=== PATIENT | male | born 1960 | race American Indian/Alaskan Native ===

== ENCOUNTER 2016-07-31 07:57 | Emergency (ER) | payer SELFPAY ==
--- NOTE | 2016-07-31 10:06 | Emergency Department Report ---
HPI - General Chief Complaint: Extremity Injury, Lower Time Seen by Provider: 07/31/16 09:50 - HPI HPI: Patient is a 55-year-old male who presents to ED complaining left foot pain and swelling 1 week. Patient states a week ago he noticed some swelling on his anterior left foot. Patient states 2 days ago he fell pain to his left pinky toe. Patient states moderate pain with applied pressure to the lateral aspect of the foot. Patient denies any trauma or fall, bites, insects staying to the foot. Patient denies taking any medication or allergic to any medication patient also denies fevers/chills/nausea/vomiting/chest pain/shortness of pain or any other problems ED Past Medical Hx - Past Medical History Previous Medical History?: No - Surgical History Past Surgical History?: No - Social History Smoking Status: Current Every Day Smoker Substance Use Type: Alcohol, Marijuana - Medications Home Medications: Home Medications Medication Instructions Recorded Confirmed Last Taken Type Clindamycin [Clindamycin CAP] 600 mg PO BID #12 capsule 07/31/16 Unknown Rx Ibuprofen [Motrin] 800 mg PO Q8HR PRN #30 tablet 07/31/16 Unknown Rx ED Review of Systems ROS: Stated complaint: LT FOOT PAIN Other details as noted in HPI Constitutional: denies: chills, fever Eyes: denies: eye pain, eye discharge, vision change ENT: denies: ear pain, throat pain Respiratory: denies: cough, shortness of breath, wheezing Cardiovascular: denies: chest pain, palpitations Endocrine: no symptoms reported Gastrointestinal: denies: abdominal pain, nausea, diarrhea Genitourinary: denies: urgency, dysuria Musculoskeletal: denies: back pain, joint swelling, arthralgia Skin: denies: rash, lesions Neurological: denies: headache, weakness, paresthesias Psychiatric: denies: anxiety, depression Hematological/Lymphatic: denies: easy bleeding, easy bruising Physical Exam - Physical Exam Vital Signs: Vital Signs 07/31/16 08:00 Temperature 98.3 F Pulse Rate 67 Respiratory 20 Rate Blood Pressure 123/78 O2 Sat by Pulse 95 Oximetry Physical Exam: GENERAL: Alert and oriented x3, no apparent distress, Normal Gait, atraumatic. HEAD: Head is normocephalic and a-traumatic. EYES: Extra ocular muscles are intact. Pupils are equal, round, and reactive to light and accommodation. MOUTH:Mouth is well hydrated and without lesions. Tonsils nonerythematous or swollen, Uvula midline, Tongue not elevated. Mucous membranes are moist. Posterior pharynx clear, no exudate or lesions. Patent airways. NECK: Supple. Non edematous, No carotid bruits. No lymphadenopathy or thyromegaly. LUNGS: Symetrical with respiration, No wheezing, no rales or crackles, CTAB. HEART: S1, S2 present, regular rate and rhythm without murmur, no rubs, no gallops. ABDOMEN: No organomegaly was noted,Positive bowel sounds, soft, and non- distended. . Nontender to palpation on all Quadrants, NO CVA tenderness. EXTREMITIES/MUSCULOSKELETAL: No cyanosis, clubbing, rash, lesions or edema. Full ROM bilaterally. UE/LE Pulses 2+ bilaterally. LE and UE 5+ strength bilaterally. No leg edema or calf tenderness bilat FEET: callused bilaterally. Mild L foot anterior edema, anterior eythema. non tender to palpation. Left last digit tender upon manipulation, infected between 4th and 5th digit, mild pus between digits. SKIN: Warm and dry, No lesions, No ulceration or induration present. ED Course Vital Signs 07/31/16 08:00 Temperature 98.3 F Pulse Rate 67 Respiratory 20 Rate Blood Pressure 123/78 O2 Sat by Pulse 95 Oximetry ED Medical Decision Making - Lab Data Result diagrams: 07/31/16 10:32 07/31/16 10:32 - Medical Decision Making 55-year-old male presents with paronychia of left interstitial digit. Vital signs stable. Patient is in no acute distress. CBC and CMP ordered and normal. Patient received 3 gram of Rocephin IV. Patient to go home on clindamycin. Discussed the patient to follow-up with foot doctor as referred. Discussed the patient and take medication as prescribed. Foot is intact. Patient is able to walk on foot. Discussed ice foot to help with mild swelling. Patient denies taking any medication or being a diabetic. Patient verbally states she understands and will follow-up. Critical care attestation.: If time is entered above; I have spent that time in minutes in the direct care of this critically ill patient, excluding procedure time. ED Disposition Clinical Impression: Cellulitis of foot without toes, left, Paronychia of fifth toe, left Disposition: DISCHARGED TO HOME OR SELFCARE Is pt being admited?: No Does the pt Need Aspirin: No Condition: Stable Instructions: Cellulitis (ED), Paronychia (ED) Additional Instructions: Follow-up with foot doctor as referred Take your medication as prescribed Prescriptions: Clindamycin [Clindamycin CAP] 600 mg PO BID #12 capsule Ibuprofen [Motrin] 800 mg PO Q8HR PRN #30 tablet PRN Reason: Pain Referrals: PRIMARY CARE, [Primary Care Provider] - 3-5 Days RENE CHURCHILL MD [Staff Physician] - 3-5 Days LYDIA WALDROP DPM [Staff Physician] - 3-5 Days YADIEL MARQUEZ DPM [Staff Physician] - 3-5 Days BRYN HASSAN MD [Staff Physician] - 3-5 Days RAJESH Almendarez [facility] [Outside] - 3-5 Days [facility] [Outside] - 3-5 Days Forms: Work/School Release Form(ED) Time of Disposition: 11:31
[2016-07-31] MEDS ORDERED: XYLOCAINE 1% MPF 5 mL INFILTRATI ONE (10:21)
[2016-07-31] MEDS ORDERED: ROCEPHIN IV ONE (10:21)
[2016-07-31 10:42] LABS: Basophils % (Auto) 0.8 % (0.0-1.8); Hematocrit 39.3 % (35.5-45.6); Hemoglobin 12.9 gm/dl (11.8-15.2); Mean Corpuscular HGB Conc 33 % (32-34); Mean Corpuscular Hemoglobin 28 pg (28-32); Mean Corpuscular Volume 86 fl (84-94); Platelet Count 276 K/mm3 (140-440); Red Blood Count 4.56 M/mm3 (3.65-5.03); Red Cell Distribution Width 13.3 % (13.2-15.2); White Blood Count 10.1 K/mm3 (4.5-11.0)
[2016-07-31 11:06] LABS: Alanine Aminotransferase 15 units/L (7-56); Albumin/Globulin Ratio 1.1 %; Alkaline Phosphatase 58 units/L (35-129); Anion Gap 16 mmol/L; Bilirubin,Total 0.6 mg/dL (0.1-1.2); Blood Urea Nitrogen 10 mg/dL (9-20); Calcium 8.6 mg/dL (8.4-10.2); Carbon Dioxide 25 mmol/L (22-30); Chloride 100.8 mmol/L (98-107); Glucose 98 mg/dL (75-100); Potassium 3.7 mmol/L (3.6-5.0); Sodium 138 mmol/L (137-145); Total Protein 7.8 g/dL (6.3-8.2)
[2016-07-31 12:07] VITALS: BP 127/70
== END 2016-07-31 12:07 | disposition home or self-care (01) ==
LOC: ED 07:57
DX: L03.116 Cellulitis of left lower limb (principal); L03.032 Cellulitis of left toe; F17.200 Nicotine dependence, unspecified, uncomplicated; F12.90 Cannabis use, unspecified, uncomplicated
CPT/HCPCS: 36415; 80053; 85025; 96374; 99283; J0696

== ENCOUNTER 2017-10-25 14:00 | Emergency (ER) | payer SELFPAY ==
[2017-10-25 14:07] VITALS: BP 120/68
--- NOTE | 2017-10-25 17:15 | Emergency Department Report ---
- General Chief Complaint: Puncture Wound Stated Complaint: RIGHT FOOT PAIN Time Seen by Provider: 10/25/17 16:58 Source: patient Mode of arrival: Ambulatory Limitations: No Limitations - History of Present Illness Initial Comments: Is a 56-year-old [place] male who stepped on a nail that was in a piece of wood 2 days ago. Patient states the nail is intact and there was no fracture nail. Patient's states the nail didn't go completely through the right foot lateral. Patient is complaining of 6 out of 10 pain since throbbing aching in his foot. There is some swelling present. Patient states he tried to wash his foot directly afterwards. Patient denies any fevers chills nausea vomiting at this time. - Related Data Previous Rx's Medication Instructions Recorded Last Taken Type Clindamycin [Clindamycin CAP] 600 mg PO BID #12 capsule 07/31/16 Unknown Rx Ciprofloxacin HCl [Cipro] 500 mg PO BID #20 tablet 10/25/17 Unknown Rx HYDROcodone/APAP 5-325 [Thayer 1 each PO Q6HR PRN #10 tablet 10/25/17 Unknown Rx 5/325] Ibuprofen [Motrin 800 MG tab] 800 mg PO Q8HR PRN #20 tablet 10/25/17 Unknown Rx Sulfamethoxazole/Trimethoprim 1 each PO BID #20 tablet 10/25/17 Unknown Rx [Bactrim DS TAB] Allergies Allergy/AdvReac Type Severity Reaction Status Date / Time No Known Allergies Allergy Verified 10/25/17 14:04 ED Review of Systems ROS: Stated complaint: RIGHT FOOT PAIN Other details as noted in HPI Comment: All other systems reviewed and negative ED Past Medical Hx - Social History Smoking Status: Current Every Day Smoker Substance Use Type: Alcohol, Marijuana - Medications Home Medications: Home Medications Medication Instructions Recorded Confirmed Last Taken Type Clindamycin [Clindamycin CAP] 600 mg PO BID #12 capsule 07/31/16 Unknown Rx Ciprofloxacin HCl [Cipro] 500 mg PO BID #20 tablet 10/25/17 Unknown Rx HYDROcodone/APAP 5-325 [Thayer 1 each PO Q6HR PRN #10 tablet 10/25/17 Unknown Rx 5/325] Ibuprofen [Motrin 800 MG tab] 800 mg PO Q8HR PRN #20 tablet 10/25/17 Unknown Rx Sulfamethoxazole/Trimethoprim 1 each PO BID #20 tablet 10/25/17 Unknown Rx [Bactrim DS TAB] ED Physical Exam - General Limitations: No Limitations General appearance: alert, in no apparent distress - Head Head exam: Present: atraumatic, normocephalic - Eye Eye exam: Present: normal appearance - ENT ENT exam: Present: mucous membranes moist - Neck Neck exam: Present: normal inspection - Respiratory Respiratory exam: Present: normal lung sounds bilaterally. Absent: respiratory distress, wheezes, rales - Cardiovascular Cardiovascular Exam: Present: regular rate, normal rhythm. Absent: systolic murmur, diastolic murmur, rubs, gallop - GI/Abdominal GI/Abdominal exam: Present: soft, normal bowel sounds - Rectal Rectal exam: Present: deferred - Extremities Exam Extremities exam: Present: pedal edema (A shows right mid foot does show some mild erythema and swelling. There is a puncture wound approximately age and a half proximal to the fifth toe on the plantar surface. There is also a puncture on the dorsal surface as well). Absent: normal inspection - Back Exam Back exam: Present: normal inspection - Neurological Exam Neurological exam: Present: alert, oriented X3 - Psychiatric Psychiatric exam: Present: normal affect, normal mood - Skin Skin exam: Present: warm, dry, intact, normal color. Absent: rash ED Course Vital Signs 10/25/17 14:05 Temperature 99 F Pulse Rate 76 Respiratory 18 Rate Blood Pressure 120/68 O2 Sat by Pulse 98 Oximetry ED Medical Decision Making - Medical Decision Making Be started on antibiotics and be discharged home. Critical care attestation.: If time is entered above; I have spent that time in minutes in the direct care of this critically ill patient, excluding procedure time. ED Disposition Clinical Impression: Puncture wound, Cellulitis of foot Disposition: DC-01 TO HOME OR SELFCARE Is pt being admited?: No Does the pt Need Aspirin: No Condition: Stable Instructions: Cellulitis (ED), Puncture Wound (ED) Prescriptions: Ciprofloxacin HCl [Cipro] 500 mg PO BID #20 tablet HYDROcodone/APAP 5-325 [Thayer 5/325] 1 each PO Q6HR PRN #10 tablet PRN Reason: Pain Ibuprofen [Motrin 800 MG tab] 800 mg PO Q8HR PRN #20 tablet PRN Reason: Pain Sulfamethoxazole/Trimethoprim [Bactrim DS TAB] 1 each PO BID #20 tablet Referrals: LYDIA NAVARRETE MD [Staff Physician] - 3-5 Days
== END 2017-10-25 17:37 | disposition home or self-care (01) ==
LOC: ED 14:00 → EDBD 14:00 → ED 17:36
DX: S91.332A Puncture wound without foreign body, left foot, initial encounter (principal); L03.116 Cellulitis of left lower limb; F17.200 Nicotine dependence, unspecified, uncomplicated; F12.10 Cannabis abuse, uncomplicated; W22.8XXA Striking against or struck by other objects, initial encounter; Y93.89 Activity, other specified; Y92.89 Other specified places as the place of occurrence of the external cause; Y99.8 Other external cause status
CPT/HCPCS: 99282